=== PATIENT | female | born 1950 | race Caucasian/White ===

== ENCOUNTER 2016-09-21 11:55 | Outpatient (CLI) ==
[2014-04-13 09:31] VITALS: BMI 39.1
[2016-09-21 12:39] LABS: ALBUMIN 3.7 g/dL (3.4-5.0); ALBUMIN/GLOBULIN RATIO 0.95; ANION GAP 15.5; BILIRUBIN,DIRECT 0.17 mg/dL (0.00-0.30); BILIRUBIN,TOTAL 0.5 mg/dL (0.00-1.20); BUN/CREATININE RATIO 17.02; CALCIUM 9.9 mg/dL (8.2-10.2); CREATININE 0.94 mg/dL (0.60-1.30); PHOSPHORUS 3.1 mg/dL (2.8-4.1); POTASSIUM 4.5 mmol/L (3.5-5.10); TOTAL PROTEIN 7.6 g/dL (5.8-8.1)
== END 2016-09-21 11:56 | disposition home or self-care (01) ==
LOC: LAB 11:55
PROVIDERS: ATTEND Nurse Practitioner
DX: Z51.81 Encounter for therapeutic drug level monitoring (principal); Z79.891 Long term (current) use of opiate analgesic; F19.20 Other psychoactive substance dependence, uncomplicated
CPT/HCPCS: 36415; 80053; 82248; 84100

== ENCOUNTER 2018-06-11 11:35 | Outpatient (CLI) ==
[2014-04-13 09:31] VITALS: BMI 39.1
--- NOTE | 2018-06-11 12:41 | US ---
EXAM: ULTRASOUND LOWER EXTREMITY VENOUS DOPPLER EXAM HISTORY: Right leg pain. FINDINGS: Right lower extremity venous Doppler exam. Real time smith-scale, Doppler spectral analysis and color-flow Doppler imaging performed. The veins targeted for evaluation include the common femo ral, greater saphenous, profundus, femoral, popliteal, peroneal, anterior tibial and posterior tibial . The evaluated veins demonstrated normal spontaneous flow and compression without evidence of thro mbosis. IMPRESSION: No venous thrombosis identified within the areas evaluated.
== END 2018-06-11 11:36 | disposition home or self-care (01) ==
LOC: RAD 11:35
PROVIDERS: ATTEND Family Medicine
DX: M79.604 Pain in right leg (principal)